=== PATIENT | female | born 1955 | race Caucasian/White ===

== ENCOUNTER 2018-05-10 17:22 | Emergency (ER) | payer OTHER ==
[~2018-05-10] VITALS: Ht 162.6 cm; Wt 83.0 kg
[2018-05-10 17:28] VITALS: BP 118/68; Ht 162.6 cm; Wt 83.0 kg
== END 2018-05-10 19:39 | disposition home or self-care (01) ==
LOC: ED 17:22
DX: R06.00 Dyspnea, unspecified (principal); F31.9 Bipolar disorder, unspecified
CPT/HCPCS: 36600

== ENCOUNTER 2019-03-12 20:27 | Emergency (ER) | payer OTHER ==
[~2019-03-12] VITALS: Ht 162.6 cm; Wt 81.6 kg
[2019-03-12 20:53] VITALS: Ht 162.6 cm; Wt 81.6 kg
[2019-03-12 21:24] LABS: BASOPHIL % 1.1 % (0-2); PLATELET COUNT 229 x10^3mcL (130-400); RED CELL DISTRIBUTION WIDTH 13.8 % (11.5-14.5)
[2019-03-12 21:34] LABS: CARBON DIOXIDE 22.8 mmol/L (21-32); CHLORIDE SERUM 105 mmol/L (98-107); CREATININE SERUM 0.8 mg/dL (0.6-1.0); GFR1 > 60 mL/min; GLUCOSE SERUM 116 mg/dL (74-106); POTASSIUM SERUM 3.9 mmol/L (3.5-5.1); SODIUM SERUM 143 mmol/L (136-145)
[2019-03-12 21:38] LABS: ALBUMIN 3.5 g/dL (3.4-5.0); ALKALINE PHOSPHATASE 134 U/L (46-116); ALT/SGPT 47 U/L (14-59); AST/SGOT 47 U/L (15-37); BILIRUBIN TOTAL 0.57 mg/dL (0.20-1.00); LIPASE 221 IU/L (73-393); TOTAL PROTEIN, SERUM 8.4 g/dL (6.4-8.2)
[2019-03-12 22:21] LABS: microscopic required? YES; urine erythrocyte 2+ (NEGATIVE)
[2019-03-12 23:43] VITALS: BP 148/91
== END 2019-03-12 23:43 | disposition home or self-care (01) ==
LOC: ED 20:27
PROVIDERS: Emergency Medicine
DX: N30.90 Cystitis, unspecified without hematuria (principal); A08.4 Viral intestinal infection, unspecified; I10 Essential (primary) hypertension; F31.9 Bipolar disorder, unspecified; Z88.0 Allergy status to penicillin
CPT/HCPCS: 87804; J0696; J1885; J7030; Q0092

== ENCOUNTER 2019-07-18 19:16 | Emergency (ER) | payer OTHER ==
[~2019-07-18] VITALS: Ht 167.6 cm; Wt 65.8 kg
[2019-07-18 19:22] VITALS: Ht 167.6 cm; Wt 65.8 kg
[2019-07-18 20:04] LABS: BASOPHIL % 0.2 % (0-2); PLATELET COUNT 215 x10^3mcL (130-400); RED CELL DISTRIBUTION WIDTH 14.2 % (11.5-14.5)
[2019-07-18 20:08] LABS: CALCIUM 8.6 mg/dL (8.5-10.1); CARBON DIOXIDE 24.1 mmol/L (21-32); CHLORIDE SERUM 107 mmol/L (98-107); CREATININE SERUM 0.7 mg/dL (0.6-1.0); GFR1 > 60 mL/min; GLUCOSE SERUM 146 mg/dL (74-106); POTASSIUM SERUM 3.2 mmol/L (3.5-5.1); SODIUM SERUM 143 mmol/L (136-145)
[2019-07-18 20:12] LABS: ALKALINE PHOSPHATASE 137 U/L (46-116); ALT/SGPT 27 U/L (14-59); AST/SGOT 26 U/L (15-37); BILIRUBIN TOTAL 0.43 mg/dL (0.20-1.00); LIPASE 109 IU/L (73-393); TOTAL PROTEIN, SERUM 7.8 g/dL (6.4-8.2)
[2019-07-18 20:13] LABS: ALBUMIN 3.2 g/dL (3.4-5.0)
[2019-07-19 07:44] VITALS: BP 134/54
== END 2019-07-19 07:44 | disposition home or self-care (01) ==
LOC: ED 19:16
PROVIDERS: Emergency Medicine
DX: R19.7 Diarrhea, unspecified (principal); R10.84 Generalized abdominal pain; I10 Essential (primary) hypertension; F31.9 Bipolar disorder, unspecified; Z88.0 Allergy status to penicillin
CPT/HCPCS: 36415; 87046; 87046-59; J7030; J7613; J7644

== ENCOUNTER 2020-01-08 11:00 | Emergency (ER) | payer OTHER ==
[~2020-01-08] VITALS: Ht 162.6 cm; Wt 80.7 kg
[~2020-01-08 11:00] MED LIST: AMLODIPINE BESYL5 M1 PO; FLO4 PO; LAC PO; MAC100 PO; NORCO1 TA1 PO; PRILOSEC40 MG PO; PRINIVIL20 MG PO; PROZ20 PO; SEROQUEL200 MG PO; TRAZODONE HYDR100 MG PO; ZESTRIL20 MG PO
[2020-01-08 11:06] VITALS: Ht 162.6 cm; Wt 80.7 kg
[2020-01-08 12:14] LABS: BASOPHIL % 0.8 % (0-2); PLATELET COUNT 208 x10^3mcL (130-400)
[2020-01-08 12:24] LABS: CALCIUM 9.2 mg/dL (8.5-10.1); CARBON DIOXIDE 27.7 mmol/L (21-32); CHLORIDE SERUM 103 mmol/L (98-107); CREATININE SERUM 0.6 mg/dL (0.6-1.0); GFR1 > 60 mL/min; GLUCOSE SERUM 123 mg/dL (74-106); POTASSIUM SERUM 3.8 mmol/L (3.5-5.1); SODIUM SERUM 140 mmol/L (136-145)
[2020-01-08 12:28] LABS: ALBUMIN 3.6 g/dL (3.4-5.0); ALKALINE PHOSPHATASE 118 U/L (46-116); ALT/SGPT 44 U/L (14-59); AST/SGOT 44 U/L (15-37); BILIRUBIN TOTAL 0.5 mg/dL (0.20-1.00); TOTAL PROTEIN, SERUM 8.2 g/dL (6.4-8.2)
[2020-01-08 13:50] VITALS: BP 144/88
== END 2020-01-08 13:45 | disposition home or self-care (01) ==
LOC: ED 11:00
PROVIDERS: Emergency Medicine
DX: J45.909 Unspecified asthma, uncomplicated (principal); R51 Headache; R19.7 Diarrhea, unspecified; I10 Essential (primary) hypertension; Z88.0 Allergy status to penicillin
CPT/HCPCS: 87804; Q0092; U0002